=== PATIENT | female | born 1945 | race Caucasian/White ===

== ENCOUNTER 2018-09-25 01:49 | Emergency (ER) | payer OTHER ==
[2018-09-25 02:44] VITALS: TEMP 98.1; BMI 24.5
--- NOTE | 2018-09-25 03:33 | PDOC ---
Attending Attestation - Resident Resident Name: Karen Smith - ED Attending Attestation I have performed the following: I have examined & evaluated the patient, The case was reviewed & discussed with the resident, I agree w/resident's findings & plan - HPI HPI: 09/25/18 05:12 73-year-old female with episodic dizziness and labile blood pressures. No history of chest pain. - Physicial Exam PE: 09/25/18 05:14 agree with resident exam - Medical Decision Making 09/25/18 05:14 73-year-old female with intermittent dizziness and labile blood pressures EKG does show some T-wave abnormalities with no old for comparison Labs are unremarkable including a troponin Plan for CT scan of the brain, if within normal limits patient will be discharged home and advised to follow-up with both cardiology and primary care Patient has remained asymptomatic while in the emergency department.
--- NOTE | 2018-09-25 03:36 | PDOC ---
History of Present Illness - General Chief Complaint: Blood Pressure Problem Stated Complaint: ELEVATED BLOOD PRESSURE Time Seen by Provider: 09/25/18 03:22 - History of Present Illness Initial Comments: 09/25/18 05:47 73yo guamanian-speaking F hx arthritis presents from home c/o varying BP. Pt states she was told to check her BP regularly because her arthritis medications can affect it. She checks it once a day at various times. It is normally in 120s /80s. Today it went up to 224/109 at 230pm and she felt dizzy and flushed. Denies hx of high BP or similar sx. Endorses not a headache but a head pressure , bitemporal, constant, gradual onset, since Saturday, aided by aspirin, similar to previous head pressures. Pt still has head pressure but denies any other complaints including dizziness, syncope, vision changes, photophobia, neck pain , back pain, CP, SOB, abdominal pain, D/C, blood in stool, hematuria, dysuria, numbness/tingling, weakness, trauma, falls, sick contacts, recent travel. PCP - Dr Doroteo Sierra Past History - Past Medical History Allergies/Adverse Reactions: Allergies Allergy/AdvReac Type Severity Reaction Status Date / Time No Known Allergies Allergy Verified 09/25/18 02:10 Home Medications: Ambulatory Orders NK [No Known Home Medication] 09/25/18 - Suicide/Smoking/Psychosocial Hx Smoking History: Never smoked Have you smoked in the past 12 months: No Information on smoking cessation initiated: No Hx Alcohol Use: No Drug/Substance Use Hx: No Review of Systems - Review of Systems Comments:: 09/25/18 05:47 Constitutional: Negative for chills, fever, fatigue. HENT: Negative for sore throat, rhinorrhea, congestion. Eyes: Negative for visual disturbance. Respiratory: Negative for shortness of breath, cough, and wheezing. Cardiovascular: Negative for chest pain, palpitations, and leg swelling. Gastrointestinal: Negative for abdominal pain, blood in stool, constipation, diarrhea, nausea, and vomiting. Genitourinary: Negative for dysuria, flank pain, and hematuria. Musculoskeletal: Negative for myalgias, back pain, and neck pain. Skin: Negative for rash. Neurological: Positive for headache, dizziness. Negative for syncope, weakness, numbness. Psychiatric/Behavioral: Negative for behavioral problems and confusion. *Physical Exam - Vital Signs Last Vital Signs Temp Pulse Resp BP Pulse Ox 98.1 F 82 19 173/89 H 99 09/25/18 01:49 09/25/18 01:49 09/25/18 01:49 09/25/18 01:49 09/25/18 01:49 - Physical Exam Comments: 09/25/18 05:47 Gen: Alert, NAD, comfortable-appearing. HEENT: PERRL, EOMI, MMM, NCAT. No conjunctival pallor. Sclera are non-icteric. Oropharynx is clear. CV: Regular rate and rhythm. No murmurs, rubs, or gallops. PULM: No resp distress. CTAB, no wheezes, rales, or rhonchi. ABD: soft, NT/ND, no rebound tenderness or guarding, no CVA tenderness. BACK: No TTP of c/t/l-spine. No step-offs or deformities. MSK: Arthritic deformities of fingers. 2+ pulses in all extremities. NEURO: AAOx3. PERRL. CN 2-12 intact. 5/5 strength in all extremities. Sensation to light touch intact in all extremities. No pronator drift. No dysmetria. No dysdiadochokinesia. No abnormal nystagmus. No skew deviation. Normal gait. EXTREMITIES: No cyanosis. No edema. No calf tenderness. PSYCH: Normal mood and thought pattern. SKIN: Warm and dry. Normal capillary refill. No rashes. No jaundice. Heart Score/ECG Review - ECG Impressions Comment:: 09/25/18 05:38 NSR, 71bpm, QTc 475ms, TWI in V4/V5, no KAYCEE/Ds, left axis deviation. No previous EKGs for comparison. ED Treatment Course - LABORATORY CBC & Chemistry Diagram: 09/25/18 03:35 09/25/18 03:35 Medical Decision Making - Medical Decision Making 73yo guamanian-speaking F hx arthritis presents from home c/o varying BP. Pt states she was told to check her BP regularly because her arthritis medications can affect it. She checks it once a day at various times. It is normally in 120s /80s. Today it went up to 224/109 at 230pm and she felt dizzy and flushed. Denies hx of high BP or similar sx. Endorses not a headache but a head pressure , bitemporal, constant, gradual onset, since Saturday, aided by aspirin, similar to previous head pressures. Pt still has head pressure but denies any other complaints including dizziness, syncope, vision changes, photophobia, neck pain , back pain, CP, SOB, abdominal pain, D/C, blood in stool, hematuria, dysuria, numbness/tingling, weakness, trauma, falls, sick contacts, recent travel. PCP - Dr Doroteo Sierra BP lowered to 173/89 here - no medications indicated at this time. Obtain labs to assess for hypertensive urgency. Also evaluate presyncope etiologies including infectious, metabolic, cardiac, and neurologic. Stroke or ICH of low concern due to lack of neurologic deficits, significant risk factors, or trauma/ head injury, but will assess with CTH. -EKG -CBC, CMP, Cardiac profile, Mg, Phos, TSH, UA/UC -CXR, CTH -Dispo: pending w/u 09/25/18 05:40 EKG reviewed. NSR, 71bpm, QTc 475ms, TWI in V4/V5, no KAYCEE/Ds, left axis deviation. No previous EKGs for comparison. Labs reviewed. No concerning findings. Pending UA, CT, XR. 09/25/18 06:14 XR reviewed - no acute findings CT read - no acute findings Pending UA. 09/25/18 06:15 BP 149/74. Pt feels well with no complaints. Discussed results and need to f/u with PCP for further evaluation. Will dc home with supportive treatment. Return precautions given. Pt understands all dc instructions and all questions were answered. 09/25/18 18:39 UA negative for infection. No need to call pt. *DC/Admit/Observation/Transfer Diagnosis at time of Disposition: Blood pressure alteration, Dizziness - Discharge Dispostion Disposition: HOME Condition at time of disposition: Stable Decision to Admit order: No - Referrals Referrals: Doroteo Sierra MD [Non Staff, Medical] - - Patient Instructions Printed Discharge Instructions: DI for High Blood Pressure, DI for Dizziness- Nonvertigo Additional Instructions: You have been seen in the Emergency Department for your high blood pressure and dizziness. Your EKG, chest X-ray, CT scan of your head, and labs show no signs concerning for an emergent condition such as a heart attack or stroke. There are many reasons your blood pressure could be varying, including but not limited to, due to food/water intake, medication use, stress, activity, or a medical condition. Follow-up with your primary care doctor within 1 week for further assessment. Return to the ED immediately if you experience chest pain, difficulty breathing , dizziness, or any other new or worsening symptom. - Post Discharge Activity
[2018-09-25 04:18] LABS: BASO % 0.2 % (0-2.0); EOS % 0.4 % (0-4.5); LYMPH % 28.5 % (8-40); MCH 26.3 pg (25.7-33.7); MCHC 33.3 g/dl (32.0-36.0); MEAN CELL VOLUME 79.1 fl (80-96); MEAN PLT VOLUME 9.2 fl (7.5-11.1); MONO % 16.7 % (3.8-10.2); NEUT % 54.2 % (42.8-82.8); PLATELET COUNT 270 K/MM3 (134-434); RBC 4.18 M/mm3 (3.60-5.2); RDW 13.7 % (11.6-15.6); WHITE BLOOD COUNT 4.1 K/mm3 (4.0-10.0)
[2018-09-25 04:28] VITALS: BP 149/74; PULSE 74
[2018-09-25 05:04] LABS: ALBUMIN 3.4 g/dl (3.4-5.0); BILIRUBIN,TOTAL 0.2 mg/dL (0.2-1); BLOOD UREA NITROGEN 15.5 mg/dL (7-18); CREATININE 0.5 mg/dL (0.55-1.3); MAGNESIUM 2.1 mg/dL (1.8-2.4); POTASSIUM 4.1 mmol/L (3.5-5.1); TOT PROT 8.1 g/dl (6.4-8.2)
[2018-09-25 05:16] LABS: PHOSPHOROUS 3.8 mg/dL (2.5-4.9)
[2018-09-25 08:37] LABS: EPI CELLS 2.4 /HPF (0-5/HPF); HYALINE CASTS 4 /lpf (0-8); URINE APPEARANCE CLEAR; URINE BACTERIA 85.5 /hpf (NEGATIVE); URINE BILIRUBIN NEGATIVE (NEGATIVE); URINE COLOR YELLOW; URINE GLUCOSE (UA) NEGATIVE (NEGATIVE); URINE KETONE NEGATIVE (NEGATIVE); URINE LEUK ESTERASE NEGATIVE (NEGATIVE); URINE NITRITE NEGATIVE (NEGATIVE); URINE PROTEIN NEGATIVE (NEGATIVE); URINE RBC 2 /hpf (0-4); URINE UROBILINOGEN 0.2 mg/dL (0.2-1.0); URINE WBC 4 /hpf (0-5)
--- NOTE | 2018-09-25 13:59 | EKG ---
Test Reason : Blood Pressure : / mmHG Vent. Rate : 071 BPM Atrial Rate : 071 BPM P-R Int : 186 ms QRS Dur : 096 ms QT Int : 438 ms P-R-T Axes : 045 -46 066 degrees QTc Int : 475 ms NORMAL SINUS RHYTHM LEFT ANTERIOR FASCICULAR BLOCK NONSPECIFIC T WAVE ABNORMALITY PROLONGED QT ABNORMAL ECG NO PREVIOUS ECGS AVAILABLE Confirmed by TASH RODNEY MD ([id number]) on 09/25/2018 1:59:18 PM Referred By: Confirmed By:TASH RODNEY MD
== END 2018-09-25 06:29 | disposition home or self-care (01) ==
LOC: JER 01:49
DX: I99.8 Other disorder of circulatory system (principal); R03.0 Elevated blood-pressure reading, without diagnosis of hypertension; R42 Dizziness and giddiness
CPT/HCPCS: 36415; 70450-TC; 71046-TC-FY; 80053; 81003; 82550; 83735; 84100; 84443; 84484; 85025; 87086; 93005; 93010; 99283-25